=== PATIENT | male | born 1980 | race African-American/Black ===

== ENCOUNTER 2022-02-20 23:16 | Emergency (ER) | payer SELFPAY ==
[~2022-02-20] VITALS: Ht 180.3 cm; Wt 74.8 kg
--- NOTE | 2022-02-21 00:13 | NUR ---
FRANK. TO ER BED 12. DROWSY BUT ARRSOABLE. ANSWER TO QUESTIONS APPROPRIATELY. BROUGHT IN FOR ACCIDENTALLY INGESTING 6-6 PCS OF CANNABIS CANDY 10MG EACH. PT IS NOTED DROWSY. AWAITING MD FOR STEVO
[2022-02-21 00:34] VITALS: BP 141/90
--- NOTE | 2022-02-21 00:35 | NUR ---
PT IS PICKED UP BY HIS GIRLFRIEND, HALIE
== END 2022-02-21 00:36 | disposition home or self-care (01) ==
LOC: ER 23:27
DX: T40.711A Poisoning by cannabis, accidental (unintentional), initial encounter (principal); Y92.89 Other specified places as the place of occurrence of the external cause